=== PATIENT | female | born 1960 | race African-American/Black ===

== ENCOUNTER 2017-04-22 15:59 | Emergency (ER) ==
[2017-04-22 16:11] VITALS: BP 182/97; TEMP 98.5
--- NOTE | 2017-04-22 16:36 | DI ---
EXAM: Three views of the left foot. History: Left foot pain. Findings: Seen on the lateral view there is a linear lucency traversing the distal fibula. No disloc ation. No abnormal calcifications or radiopaque foreign bodies. Joint spaces are preserved. Impression: Question nondisplaced distal fibular fracture.
--- NOTE | 2017-04-22 16:36 | DI ---
EXAM: Three views of the left ankle. History: Left ankle pain. Findings: Seen on the lateral view there is a linear lucency seen traversing the distal fibula. No dislocation. No abnormal calcifications or radiopaque foreign bodies. Joint spaces are preserved. Impression: Question nondisplaced distal fibular fracture.
--- NOTE | 2017-04-22 16:42 | ED.PDOC ---
General ED Provider: Dr. MARY ELLEN DEWITT Chief Complaint: Ankle Pain/Injury Stated Complaint: left ankle pain Time Seen by Physician: 16:20 Mode of Arrival: Wheelchair Information Source: Patient Exam Limitations: No limitations Primary Care Provider: RUPERTO HERNANDEZ Nursing and Triage Documentation Reviewed and Agree: Yes Reviewed sepsis parameters & appropriate labs ordered?: Yes System Inflammatory Response Syndrome: Not Applicable Sepsis Protocol: For patient's 13 years and over: Temp is 96.8 and below OR 101 and greater Pulse >90 BPM Resp >20/minute Acutely Altered Mental Status Are patient's symptoms suggestive of a new infection, such as: -Pneumonia -Skin, Soft Tissue -Endocarditis -UTI -Bone, Joint Infection -Implantable Device -Acute Abdominal Infection -Wound Infection -Meningitis -Blood Stream Catheter Infection -Unknown System Inflammatory Response Syndrome: Not Applicable Musculoskeletal Complaint Exam - Ankle/Foot Complaint/Exam Location of Injury: Reports: Left, Ankle, Foot Mechanism of Injury: Reports: Trauma Onset/Duration: today twisted stepped on a patch of ice Symptoms Are: Reports: Still present Onset of Pain: Reports: Immediate Initial Severity: Moderate Current Severity: Moderate Location: Reports: Discrete (ankle lateral foot lateral) Character: Reports: Aching Alleviating: Reports: Rest, Position Aggravating: Reports: Movement Able to Bear Weight: Yes Associated Signs and Symptoms: Denies: Swelling, Redness, Bruising, Fever, Weakness, Numbness, Tingling Gout Risk Factors: Reports: HTN Related Surgical History: Reports: None Lower Extremity Findings: Present: Tenderness (lateral ankle left) Tenderness: Present: Lateral malleolus, Midfoot Differential Diagnosis: Closed Fracture, Sprain, Strain Review of Systems - Review Of Systems Constitutional: Reports: No symptoms Eyes: Reports: No symptoms Ears, Nose, Mouth, Throat: Reports: No symptoms Respiratory: Reports: No symptoms Cardiac: Reports: No symptoms GI: Reports: No symptoms : Reports: No symptoms Musculoskeletal: Reports: Joint pain (ankle left) Skin: Reports: No symptoms Neurological: Reports: No symptoms Endocrine: Reports: No symptoms Hematologic/Lymphatic: Reports: No symptoms All Other Systems: Reviewed and Negative Past Medical History - Past Medical History Previously Healthy: Yes Endocrine: Reports: Dyslipidemia Cardiovascular: Reports: Hypertension Respiratory: Reports: None Hematological: Reports: None Gastrointestinal: Reports: None Genitourinary: Reports: None Neuro/Psych: Reports: None Musculoskeletal: Reports: None Cancer: Reports: None Last Menstrual Period: n/a - Surgical History General Surgical History: Reports: None - Family History Family History: Reports: None - Social History Smoking Status: Never smoker Hx Substance Use: No Alcohol Screening: None Physical Exam - Physical Exam Appearance: Well-appearing, No pain distress, Well-nourished Eyes: TRISTON, EOMI, Conjunctiva clear ENT: Ears normal, Nose normal, Oropharynx normal Respiratory: Airway patent, Breath sounds clear, Breath sounds equal, Respirations nonlabored Cardiovascular: RRR, Pulses normal, No rub, No murmur GI/: Soft, Nontender, No masses, Bowel sounds normal, No Organomegaly Musculoskeletal: Limited ROM (left ankle) Skin: Warm, Dry, Normal color Neurological: Sensation intact, Motor intact, Reflexes intact, Cranial nerves intact, Alert, Oriented Psychiatric: Affect appropriate, Mood appropriate Critical Care Note - Critical Care Note Total Time (mins): 0 Course - Course Orders, Labs, Meds: Orders Category Date Time Status ANKLE, LEFT MIN 3 VIEWS Stat RADS 04/22/17 16:14 Completed FOOT, LEFT 3 VIEWS Stat RADS 04/22/17 16:14 Completed Vital Signs: Temp Pulse Resp BP Pulse Ox 04/22/17 16:05 98.5 F 93 H 16 182/97 H 95 Departure - Departure Time of Disposition: 16:49 Disposition: HOME SELF-CARE Discharge Problem: Ankle pain Qualifiers: Chronicity: acute Laterality: left Qualified Code(s): M25.572 - Pain in left ankle and joints of left foot Instructions: Ankle Sprain (ED) Condition: Good Pt referred to PMD for follow-up: Yes IPMP verified?: Yes Additional Instructions: Please call your Family Physician as soon as possible to schedule a follow-up appointment. RADILOGIST THINKS THERE IS A POSSIBLE FRACTURE LEFT ANKLE . PLEASE FOLLOW UP WITH DOCTOR MARY ESPITIA. NO WEIGHT BEARING USE CRUTCHED I HIGHLY RECOMMEND AN MRI Allergies/Adverse Reactions: Allergies No Known Allergies Allergy (Verified 04/22/17 16:11) Home Medications: Ambulatory Orders Amlodipine Besylate 10 mg PO DAILY 12/20/13 Carvedilol 12.5 mg PO BID 12/20/13 Losartan/Hydrochlorothiazide [Losartan-Hctz 100-25 mg Tab] 1 mg PO DAILY Simvastatin 20 mg PO DAILY 12/20/13 Nabumetone [Relafen] 500 mg PO BIDWM #8 tablet 03/05/16 Hydrocodone/Acetaminophen [[place] 10-325 Tablet] 1 each PO Q8HR #14 tablet
== END 2017-04-22 17:28 | disposition home or self-care (01) ==
LOC: ED 15:59
DX: M25.572 Pain in left ankle and joints of left foot (principal); W00.0XXA Fall on same level due to ice and snow, initial encounter; I10 Essential (primary) hypertension
CPT/HCPCS: 99283

== ENCOUNTER 2017-12-22 10:26 | Emergency (ER) ==
[2017-12-22 10:33] VITALS: BP 143/82; TEMP 97; BMI 30.9
--- NOTE | 2017-12-22 11:38 | ED.PDOC ---
General ED Provider: Dr. MARY ELLEN DEWITT Chief Complaint: Back Pain Stated Complaint: low back pain mostlt left flank Time Seen by Physician: 10:30 (seen with pt's nurse at all times ) Mode of Arrival: Walk-In Information Source: Patient Exam Limitations: No limitations Primary Care Provider: RUPERTO HERNANDEZ Nursing and Triage Documentation Reviewed and Agree: Yes Does patient meet sepsis criteria?: No If yes, has appropriate treatment been initiated?: No System Inflammatory Response Syndrome: Not Applicable Sepsis Protocol: For patient's 13 years and over: Temp is 96.8 and below OR 101 and greater Pulse >90 BPM Resp >20/minute Acutely Altered Mental Status Are patient's symptoms suggestive of a new infection, such as: -Pneumonia -Skin, Soft Tissue -Endocarditis -UTI -Bone, Joint Infection -Implantable Device -Acute Abdominal Infection -Wound Infection -Meningitis -Blood Stream Catheter Infection -Unknown Musculoskeletal Complaint Exam - Back Pain Complaint/Exam Mechanism of Injury: Reports: No known trauma Onset/Duration: 1 week Symptoms Are: Still present Timing: Intermittent Episodes Lasting: Days Initial Severity: Moderate Current Severity: Mild Location: Reports: Discrete (left flank) Character: Reports: Dull Aggravating: Reports: None Alleviating: Reports: None Associated Signs and Symptoms: Reports: Flank pain. Denies: Swelling, Redness, Bruising, Fever, Weakness, Numbness, Tingling, Abdominal pain, Bladder incontinence, Bowel incontinence, Weight loss, Pain with weight bearing TAD Risk Factors: Reports: Hypertension AAA Risk Factors: Reports: Hypertension Cauda Equina Risk Factors: Reports: None Epidural Abcess Risk Factors: Reports: None Related Surgical History: Reports: None Focal Tenderness: No Paraspinal Muscle Tenderness: No Paraspinal Muscle Spasm: No Scoliosis: No Lordosis: No Kyphosis: No SLR Test: Right Negative, Left Negative Hip Motion Testing Pain: Right Negative, Left Negative Focal Weakness: Present: None Focal Sensory Loss: Present: None Gait: Present: Normal Differential Diagnoses: Renal Colic, Strain, Sprain, Other (uti) Review of Systems - Review Of Systems Constitutional: Reports: No symptoms Eyes: Reports: No symptoms Ears, Nose, Mouth, Throat: Reports: No symptoms Respiratory: Reports: No symptoms Cardiac: Reports: No symptoms GI: Reports: No symptoms : Reports: No symptoms Musculoskeletal: Reports: Back pain Skin: Reports: No symptoms Neurological: Reports: No symptoms Endocrine: Reports: No symptoms Hematologic/Lymphatic: Reports: No symptoms All Other Systems: Reviewed and Negative Past Medical History - Past Medical History Previously Healthy: Yes Endocrine: Reports: Dyslipidemia Cardiovascular: Reports: Hypertension Respiratory: Reports: None Hematological: Reports: None Gastrointestinal: Reports: None Genitourinary: Reports: None Neuro/Psych: Reports: None Musculoskeletal: Reports: None Cancer: Reports: None Last Menstrual Period: 2012 - Surgical History General Surgical History: Reports: None - Family History Family History: Reports: None - Social History Smoking Status: Never smoker Hx Substance Use: No Alcohol Screening: None - Immunizations Tetanus Shot up to Date: (unknown) Physical Exam - Physical Exam Appearance: Well-appearing, No pain distress, Well-nourished Eyes: TRISTON, EOMI, Conjunctiva clear ENT: Ears normal, Nose normal, Oropharynx normal Respiratory: Airway patent, Breath sounds clear, Breath sounds equal, Respirations nonlabored Cardiovascular: RRR, Pulses normal, No rub, No murmur GI/: Soft, Nontender, No masses, Bowel sounds normal, No Organomegaly Musculoskeletal: Normal strength, ROM intact, No edema, No calf tenderness Skin: Warm, Dry, Normal color Neurological: Sensation intact, Motor intact, Reflexes intact, Cranial nerves intact, Alert, Oriented Psychiatric: Affect appropriate, Mood appropriate Critical Care Note - Critical Care Note Total Time (mins): 0 Course - Course Orders, Labs, Meds: Lab Review 12/22/17 10:45 Urine Color Yellow Urine Clarity Slightly Urine pH 6.0 Ur Specific [place] 1.020 Urine Protein Negative Urine Glucose (UA) Negative Urine Ketones Negative Urine Blood Negative Urine Nitrite Positive Urine Bilirubin Negative Urine Urobilinogen 1.0 Ur Leukocyte Esterase Trace Urine Microscopic RBC 2-5 Urine Microscopic WBC 2-5 Ur Squamous Epith Cells 2-5 Amorphous Sediment 1+ Urine Bacteria 1+ Urine Mucus 1+ Orders Category Date Time Status URINALYSIS C & S IF INDICATED Stat LAB 12/22/17 10:49 Uncollected URINE CULTURE Stat LAB 12/22/17 11:05 Received Vital Signs: Temp Pulse Resp BP Pulse Ox 12/22/17 10:27 97.0 F L 64 16 143/82 H 96 Departure - Departure Time of Disposition: 11:37 Disposition: HOME SELF-CARE Discharge Problem: Low back pain Qualifiers: Chronicity: chronic Back pain laterality: unspecified Sciatica presence: without sciatica Qualified Code(s): M54.5 - Low back pain; G89.29 - Other chronic pain UTI (urinary tract infection) Qualifiers: Urinary tract infection type: site unspecified Hematuria presence: without hematuria Qualified Code(s): N39.0 - Urinary tract infection, site not specified Instructions: Urinary Tract Infection in Women (ED) Condition: Good Pt referred to PMD for follow-up: Yes IPMP verified?: No Additional Instructions: Please call your Family Physician as soon as possible to schedule a follow-up appointment.you have a TOUCH of urinary tract infection see your doctor Allergies/Adverse Reactions: Allergies No Known Allergies Allergy (Verified 12/22/17 10:34) Home Medications: Ambulatory Orders Amlodipine Besylate 10 mg PO DAILY 12/20/13 Carvedilol 12.5 mg PO BID 12/20/13 Losartan/Hydrochlorothiazide [Losartan-Hctz 100-25 mg Tab] 1 mg PO DAILY Simvastatin 20 mg PO DAILY 12/20/13 Nabumetone [Relafen] 500 mg PO BIDWM #8 tablet 03/05/16 Hydrocodone/Acetaminophen [[place] 10-325 Tablet] 1 each PO Q8HR #14 tablet Disposition Discussed With: Patient
== END 2017-12-22 11:51 | disposition home or self-care (01) ==
LOC: ED 10:26
DX: M54.5 Low back pain (principal); R10.32 Left lower quadrant pain; G89.29 Other chronic pain; N39.0 Urinary tract infection, site not specified
CPT/HCPCS: 81001; 87086; 87186; 99282